=== PATIENT | female | born 1965 | race Caucasian/White ===

== ENCOUNTER 2021-10-29 09:28 | Observation (INO) ==
[2021-10-29] MEDS ORDERED: Ondansetron 4 MG/2 ML VIAL IVP ONE ×2 (10:19→13:51)
[2021-10-29] MEDS: 0.9 % Sodium Chloride 1,000 ML IVC SCH ×2 (10:35→17:28)
[2021-10-29 10:37] LABS: Basophils # 0.1 K/mcL (0.0-0.2); Basophils % 1.1 %; Eosinophils # 0.1 K/mcL (0.0-0.6); Eosinophils % 1.8 %; Hematocrit 42.1 % (35.3-44.9); Hemoglobin 14.1 g/dL (11.5-15.4); Lymphocytes % 45.4 %; Mean Corpuscular HGB Conc 33.5 g/dL (31.6-35.5); Mean Corpuscular Hemoglobin 30.7 pg (28.0-33.3); Mean Corpuscular Volume 91.7 fL (83.0-100.0); Mean Platelet Volume 9.8 fL (9.4-12.4); Monocytes # 0.4 K/mcL (0.0-1.3); Monocytes % 8.9 %; Neutrophils # 1.9 K/mcL (1.6-8.9); Platelet Count 244 K/mcL (140-400); Red Blood Count 4.59 M/mcL (3.82-4.97); Red Cell Distribution Width 12.3 % (11.5-14.5); Segmented Neutrophils % 42.8 %; White Blood Count 4.4 K/mcL (4.3-11.1)
[2021-10-29 10:46] LABS: INR 0.9; Prothrombin Time 10.5 Seconds (9.4-12.1)
[2021-10-29 10:48] LABS: Activated Partial Thrombo Time 39.2 Seconds (26.0-36.0)
[2021-10-29 11:00] LABS: Alanine Aminotransferase 11 Units/L (7-52); Albumin 3.9 g/dL (3.5-5.7); Albumin/Globulin Ratio 1.7 (1.1-2.2); Alkaline Phosphatase 83 Units/L (34-104); Aspartate Amino Transferase 14 Units/L (13-39); BUN/Creatinine Ratio 12 (6-26); Bilirubin,Direct 0.1 mg/dL (0.0-0.2); Bilirubin,Indirect 0.2 mg/dL (0.0-1.0); Bilirubin,Total 0.3 mg/dL (0.3-1.0); Blood Urea Nitrogen 13 mg/dL (6-20); Calcium 8.8 mg/dL (8.6-10.3); Carbon Dioxide 19 mEq/L (23-29); Chloride 113 mEq/L (98-107); Globulin 2.3 g/dL (2.4-3.5); Glucose 71 mg/dL (70-105); Lipase 21 Units/L (11-82); Osmolality,Calculated 287 (280-300); Potassium 3.6 mEq/L (3.5-5.1); Sodium 139 mEq/L (136-145); Total Protein 6.2 g/dL (6.4-8.9); Troponin I < 0.03 ng/mL (< 0.04)
[2021-10-29] MEDS ORDERED: Ipratropium/Albuterol Neb 3 ML IH ONE (12:04)
[2021-10-29 13:50] LABS: Bilirubin,Urine Negative (Negative); Blood,Urine Negative (Negative); Clarity,Urine Clear (Clear); Color,Urine Colorless (Yellow); Glucose,Urine (UA) Normal (Normal); Ketones,Urine Negative (Negative); Leukocyte Esterase,Urine Negative (Negative); Nitrite,Urine Negative (Negative); Protein,Urine Negative (Neg-Trace); Specific Gravity,Urine 1.007 (1.010-1.025); Urobilinogen,Urine Normal (Normal)
[2021-10-29 14:21] LABS: Influenza A PCR Negative (Negative); Influenza B PCR Negative (Negative); Resp. Syncytial Virus PCR Negative (Negative); SARS-CoV-2 by PCR (In House) Negative (Negative)
[2021-10-29] MEDS ORDERED: Furosemide 40 MG/4 ML VIAL IVP ONE (14:46)
[2021-10-29] MEDS ORDERED: Acetaminophen 325 MG TABLET PO PRN (15:42)
[2021-10-29] MEDS ORDERED: Naloxone 0.4 MG/ML INJ IVP PRN (15:42)
[2021-10-29] MEDS ORDERED: Iopamidol - 370 500 ML MLS IVP ONE (15:51)
[2021-10-29] MEDS ORDERED: Ipratropium/Albuterol Neb 3 ML IH PRN (16:02)
[2021-10-29] MEDS ORDERED: Azithromycin 500 MG in D5% in Water 250 ML IVPB SCH (19:00)
[2021-10-29] MEDS ORDERED: cefTRIAXone 1,000 MG in Water for inj. (sterile) 10 ML IVP SCH (19:00)
[2021-10-29 20:50] LABS: Magnesium 1.8 mg/dL (1.6-2.6)
[2021-10-29 20:51] LABS: Troponin I < 0.03 ng/mL (< 0.04)
[2021-10-29] MEDS: *HR* Heparin 5,000 UNIT/ML VIAL SQ SCH (21:28)
[2021-10-29] MEDS: Ondansetron 4 MG/2 ML VIAL IVP PRN (21:29)
[2021-10-30 04:14] VITALS: BP 106/66; PULSE 65; TEMP 97.8; O2SAT 94
[2021-10-30 04:28] LABS: Basophils % 0.9 %; Eosinophils # 0.1 K/mcL (0.0-0.6); Eosinophils % 1.6 %; Hematocrit 38.7 % (35.3-44.9); Hemoglobin 12.8 g/dL (11.5-15.4); Immature Granulocytes % 0.2 % (0-4); Lymphocytes % 45.8 %; Mean Corpuscular HGB Conc 33.1 g/dL (31.6-35.5); Mean Corpuscular Hemoglobin 30.2 pg (28.0-33.3); Mean Corpuscular Volume 91.3 fL (83.0-100.0); Mean Platelet Volume 9.9 fL (9.4-12.4); Monocytes # 0.4 K/mcL (0.0-1.3); Monocytes % 8.4 %; Neutrophils # 1.9 K/mcL (1.6-8.9); Platelet Count 242 K/mcL (140-400); Red Blood Count 4.24 M/mcL (3.82-4.97); Red Cell Distribution Width 12.4 % (11.5-14.5); Segmented Neutrophils % 43.1 %; White Blood Count 4.3 K/mcL (4.3-11.1)
[2021-10-30 04:47] LABS: Albumin 3.5 g/dL (3.5-5.7); Albumin/Globulin Ratio 1.7 (1.1-2.2); Bilirubin,Total 0.3 mg/dL (0.3-1.0); Calcium 8.5 mg/dL (8.6-10.3); Chol/HDL Ratio 2.5 (0-4.9); Globulin 2.1 g/dL (2.4-3.5); Potassium 3.7 mEq/L (3.5-5.1); Total Protein 5.6 g/dL (6.4-8.9)
[2021-10-30] MEDS: *HR* Heparin 5,000 UNIT/ML VIAL SQ SCH (05:13)
[2021-10-30] MEDS ORDERED: Regadenoson 0.4 MG/5 ML SYRINGE IVP ONE (06:16)
[2021-10-30] MEDS ORDERED: Aspirin 81 MG TAB.CHEW PO SCH (09:00)
[2021-10-30] MEDS ORDERED: NON-FORMULARY MEDICATION 1 EACH EACH (Fluoxetine Hcl [Fluoxetine Hcl] 40 MG Capsule) PO SCH (09:00)
[2021-10-30] MEDS ORDERED: FLUoxetine 20 MG CAPSULE PO SCH (09:00)
[2021-10-30] MEDS ORDERED: Pantoprazole 40 MG VIAL IVP SCH (09:00)
[2021-10-30] MEDS: Ondansetron 4 MG/2 ML VIAL IVP PRN (09:30)
[2021-10-30] MEDS ORDERED: *HR* Promethazine 25 MG/ML VIAL IM ONE (10:22)
[2021-10-30] MEDS ORDERED: Topiramate 100 MG TABLET PO SCH (21:00)
== END 2021-10-30 15:02 | disposition home or self-care (01) ==
LOC: EMEROOARM 09:28 → 3BNU 09:28 → SUATTDRO 15:09 → 3BNU 17:05
PROVIDERS: ADMIT General Practice; ATTEND Internal Medicine